=== PATIENT | male | born 1960 | race Caucasian/White ===

== ENCOUNTER 2018-07-14 09:46 | Emergency (ER) | payer OTHER ==
[~2018-07-14] VITALS: Ht 175.3 cm; Wt 72.6 kg
[~2018-07-14 09:46] MED LIST: AMOX1TAB5 PO; ULTRACET PO
== END 2018-07-14 14:20 | disposition home or self-care (01) ==
LOC: ER 09:46
DX: S90.31XA Contusion of right foot, initial encounter (principal); S90.01XA Contusion of right ankle, initial encounter; W18.39XA Other fall on same level, initial encounter; Y93.89 Activity, other specified; Y92.89 Other specified places as the place of occurrence of the external cause; Y99.8 Other external cause status

== ENCOUNTER → 2025-04-01 | Emergency (ER) | payer OTHER ==
[~2025-04-01] VITALS: Ht 172.7 cm; Wt 80.3 kg
[~2025-04-01] MED LIST changes: +ACETAMINOPHEN 325 MG TABLET PO ONE; +ACETAMINOPHEN 500 MG GEL..CAP PO ONE; +CEFTRIAXONE SODIUM 2,000 MG VIAL IV ONE; +CEFTRIAXONE SODIUM 2,000 MG VIAL ONE; +FAMOTIDINE/PF 20 MG/2 ML VIAL ONE; +FAMOtidine 10 MG/ML (4ML VIAL) IV PUSH ONE
[2025-04-01 17:58] LABS: BASO % 0.4 % (0.1-1.2); EOS # 0.01 (0.04-0.54); EOS % 0.1 % (0.7-7.0); LYMPH # 2.13 (1.18-3.74); LYMPH % 16.3 % (19.3-53.1); MEAN PLATELET VOLUME 8.40 fl (9.4-12.4); MONO # 1.33 (0.24-0.82); MONO % 10.2 % (4.7-12.5); NEUT # 9.51 (1.56-6.13); NEUT % 72.5 % (34.0-71.1); RED CELL DISTRIBUTION WIDTH 13.2 % (11.6-14.4)
[2025-04-01 18:03] LABS: ERYTHROCYTE SEDIMENTATION RATE 28 mm/hr (0-20)
[2025-04-01 18:25] LABS: ALT/SGPT 36.0 U/L (12-78); AST/SGOT 18.0 U/L (15-37); BILIRUBIN TOTAL 0.48 mg/dL (0.3-1.2); BUN CREA RATIO 11.0 (7.0-25.0); CREATININE SERUM 1.48 mg/dL (0.70-1.30); GFR 47.85; GLOBULINA 5.6 G/DL (2.4-3.5); GLUCOSE FASTING 93.0 mg/dL (65-100); OSMOLALITY SERUM 275.0 MOSM/KG (275-295)
[2025-04-01 18:29] LABS: URINE APPEARANCE Cloudy; URINE BILIRRUBIN Negative (NEGATIVE); URINE BLOOD Large; URINE COLOR Yellow; URINE GLUCOSE Negative (NEGATIVE); URINE KETONE Negative (NEGATIVE); URINE LEUKOCYTE Large; URINE NITRATE Positive; URINE UROBILINOGEN 1.0 E.U./dl
[2025-04-01 18:33] LABS: URINE EPITHELIAL CELLS 6.5 uL (0.0-38.8); URINE RBC 24.5 uL (0.0-20.8); URINE WBC 1352.9 uL (0.0-23.2)
[2025-04-01 18:54] LABS: URINE BACTERIA > 9821.5 uL (0.0-1933); URINE CAST 0.28 uL (0.0-1.40); URINE PROTEIN 100 (NEGATIVE)
== END | disposition left against medical advice (07) ==
LOC: ER 14:25
PROVIDERS: General Practice
DX: N39.0 Urinary tract infection, site not specified (principal); N12 Tubulo-interstitial nephritis, not specified as acute or chronic